=== PATIENT | female | born 1985 | race Two or more races ===

== ENCOUNTER → 2024-09-13 | Emergency (ER) | payer MEDICAID ==
[~2024-09-13] VITALS: Ht 157.5 cm; Wt 68.0 kg
[~2024-09-13] MED LIST: HYDR-4209 PO; HYDROCODONE/APAP 5-325MG TABLET ONE
[2024-09-13] MEDS: HYDROCODONE/APAP 5-325MG TABLET PO ONE (19:18)
[2024-09-13 21:59] VITALS: BP 135/76; TEMP 98; O2SAT 98
== END | disposition home or self-care (01) ==
LOC: ER 18:57 → EDBD 18:57
DX: S83.91XA Sprain of unspecified site of right knee, initial encounter (principal); S00.83XA Contusion of other part of head, initial encounter; M79.651 Pain in right thigh; R10.2 Pelvic and perineal pain; E11.9 Type 2 diabetes mellitus without complications; W18.2XXA Fall in (into) shower or empty bathtub, initial encounter; Y93.E1 Activity, personal bathing and showering; Y92.9 Unspecified place or not applicable; Y99.9 Unspecified external cause status
CPT/HCPCS: 70450; 72170; 73551; A4606; A4663